=== PATIENT | female | born 1985 | race Hispanic/Latino ===

== ENCOUNTER 2021-09-18 18:40 | Emergency (ER) | payer OTHER ==
[2021-09-18 19:27] LABS: Urine Blood Trace-lysed (Negative); Urine Glucose Negative (Negative); Urine Protein Trace (Negative); Urine Specific Gravity >=1.030 (1.005-1.030)
[2021-09-18 19:33] LABS: Absolute Lymphocytes (CBC) 2.9 K/uL (0.7-4.9); Basophils % 0.7 % (0-1.3); Hematocrit 35.6 % (36.0-45.0); Lymphocytes % 27.5 % (15.3-44.8); MPV 7.6 fL (7.6-11.3); RBC Red Blood Cell Count 3.94 M/uL (3.86-4.86)
[2021-09-18 19:52] LABS: Urine Bacteria <20 /HPF (<20); Urine RBC <5 /HPF (NONE SEEN)
--- NOTE | 2021-09-18 19:55 | RAD REPORT ---
EXAM DESCRIPTION: CTAbdomen Pelvis W Contrast - 09/18/2021 7:45 pm CLINICAL HISTORY: ABD PAIN COMPARISON: No comparisons TECHNIQUE: CT of the abdomen and pelvis was performed. All CT scans are performed using dose optimization technique as appropriate and may include automated exposure control or mA/KV adjustment according to patient size. FINDINGS: Lower chest: No acute abnormality. Liver: Hepatic steatosis Biliary: Cholecystectomy. Stomach: No significant focal abnormality. Duodenum: No significant focal abnormality. Pancreas: No significant abnormality. Spleen: No significant abnormality. Adrenal: No suspicious lesions. Kidney/ureter: No hydronephrosis. No renal calculi. Retroperitoneum: No retroperitoneal adenopathy. Vascular: No aneurysm. Bowel: No bowel obstruction. Normal appendix.. Peritoneum: Small fat containing umbilical hernia. Bladder: Grossly unremarkable. Reproductive: Nabothian cysts noted. Bones: No acute fracture. Other: n/a IMPRESSION: No acute intra-abdominal or pelvic finding. Normal appendix. No urinary tract calculi.
[2021-09-18 20:01] LABS: ALT/SGPT 37 U/L (12-78); AST/SGOT 22 U/L (15-37); Albumin 3.6 g/dL (3.4-5.0); Alkaline Phosphatase 129 U/L (45-117); BUN Blood Urea Nitrogen 15 mg/dL (7-18); Bicarbonate 26 mmol/L (21-32); Bilirubin Direct < 0.1 mg/dL (0-0.2); Bilirubin Total 0.2 mg/dL (0.2-1.0); Glucose Level 104 mg/dL (74-106); Lipase 123 U/L (73-393); Potassium 3.9 mmol/L (3.5-5.1); Protein, Total 7.5 g/dL (6.4-8.2); Sodium Level 142 mmol/L (136-145)
--- NOTE | 2021-09-18 20:24 | EDPHYS ---
Physician Documentation [facility] Name: Leticia Chang Age: 35 yrs Sex: Female : 1985 Arrival Date: 09/18/2021 Time: 18:47 Bed 23 Private MD: ED Physician Cristobal Chandler HPI: 09/18 20:20 This 35 yrs old Female presents to ER via Ambulatory with complaints of rn Abdominal Cramping, Low Back Pain. 20:20 The patient presents with abdominal pain in the lower abdomen. Onset: The rn symptoms/episode began/occurred 4 day(s) ago. The symptoms do not radiate. Associated signs and symptoms: Pertinent negatives: anorexia, blood in stools, chest pain, constipation, diarrhea, dysuria, fever, hematuria, shortness of breath, vaginal discharge, vomiting, vomiting blood. The symptoms are described as crampy. Modifying factors: The symptoms are alleviated by nothing, the symptoms are aggravated by nothing. Severity of pain: At its worst the pain was mild in the emergency department the pain is unchanged. The patient has experienced similar episodes in the past. The patient has not recently seen a physician. Patient reports 4 days of lower abdominal pain and discomfort. Describes it as cramping. Also has low back pain. No dysuria or urinary symptoms. No vaginal discharge. Reports is 3 weeks late on her period and is normally pretty regular. Has a history of PCOS. Took multiple negative tests at home. Came in for a blood test and evaluation.. 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 - Social history:: Smoking status: Patient denies any tobacco usage or history of. Patient/guardian denies using alcohol, street drugs. - Family history:: not pertinent. - Hospitalizations: : No recent hospitalization is reported. ROS: 20:20 Constitutional: Negative for fever, chills, and weight loss, Eyes: Negative for injury, rn pain, redness, and discharge, Neck: Negative for injury, pain, and swelling, Cardiovascular: Negative for chest pain, palpitations, and edema, Respiratory: Negative for shortness of breath, cough, wheezing, and pleuritic chest pain, Abdomen/GI: Positive for lower abdominal pain. Negative for nausea/vomiting/diarrhea Back: Negative for injury and pain, : Negative for injury, bleeding, discharge, and swelling, MS/Extremity: Negative for injury and deformity, Skin: Negative for injury, rash, and discoloration, Neuro: Negative for headache, weakness, numbness, tingling, and seizure. 20:20 All other systems are negative. rn Exam: 20:20 Constitutional: This is a well developed, well nourished patient who is awake, alert, rn and in no acute distress. 20:20 Head/Face: Normocephalic, atraumatic. Eyes: Periorbital areas with no swelling, rn redness, or edema. Cardiovascular: Regular rate and rhythm . No pulse deficits. Respiratory: Speaking full sentences, unlabored no increased work of breathing, no retractions or nasal flaring. Abdomen/GI: Soft, non-tender, no peritoneal signs or rebound. No masses. Back: No spinal tenderness. No costovertebral tenderness. Full range of motion. Skin: Warm, dry with normal turgor. Normal color with no rashes, no lesions, and no evidence of cellulitis. MS/ Extremity: Pulses equal, no cyanosis. Neurovascular intact. Full, normal range of motion. Equal circumference. Neuro: Awake and alert, GCS 15, oriented to person, place, time, and situation. Motor strength 5/5 in all extremities. Sensory grossly intact. Cerebellar exam normal. Normal gait. Vital Signs: 18:56 BP 137 / 96; Pulse 94; Resp 16; Temp 97.4(TE); Pulse Ox 100% ; Weight 88 kg; Height 5 ap3 ft. 3 in. (160.02 cm); Pain 7/10; 21:01 BP 149 / 104 LA Sitting (auto/reg); Pulse 81; Resp 16; Temp 98.3; Pulse Ox 100% on R/A; kc4 Pain 0/10; 18:56 Body Mass Index 34.37 (88.00 kg, 160.02 cm) ap3 MDM: 18:58 Patient medically screened. rn 20:20 Differential diagnosis: appendicitis, diverticulitis, Ectopic , gastritis, rn gastroesophageal reflux disease, non-specific abd pain, pancreatitis, Peptic Ulcer Disease, Pyelonephritis, Ureterolithiasis, urinary tract infection. Differential diagnosis: Ovarian cyst. Data reviewed: vital signs, nurses notes, lab test result(s). Counseling: I had a detailed discussion with the patient and/or guardian regarding: the historical points, exam findings, and any diagnostic results supporting the discharge/admit diagnosis, lab results, radiology results, the need for outpatient follow up, to return to the emergency department if symptoms worsen or persist or if there are any questions or concerns that arise at home. Response to treatment: the patient's symptoms have mildly improved after treatment, and as a result, I will discharge patient. Special discussion: Based on the patient's Hx, exam, and Dx evaluation, there is no indication for emergent surgery or inpatient Tx. It is understood by the patient/guardian that if the Sx's persist or worsen they need to return immediately for re-evaluation. I discussed with the patient/guardian in detail that at this point there is no indication for admission to the hospital. It is understood, however, that if the symptoms persist or worsen the patient needs to return immediately for re-evaluation. ED course: No acute findings and CT abdomen and pelvis. Negative urine. Negative urine as well as serum . No acute findings and blood work otherwise. Will DC home with return precautions and FREELANCE DIRECTOR follow-up.. 09/18 19:12 Order name: Basic Metabolic Panel; Complete Time: 20: 09/18 19:12 Order name: CBC with Diff; Complete Time: 20: 09/18 19:12 Order name: Hepatic Function; Complete Time: 20: rn 09/18 19:12 Order name: Lipase; Complete Time: 20: rn 09/18 19:12 Order name: Urine Microscopic Only; Complete Time: 20: 09/18 19:12 Order name: Test, Serum; Complete Time: 20: rn 09/18 19:12 Order name: IV Saline Lock; Complete Time: rn 09/18 19:12 Order name: Labs collected and sent; Complete Time: : rn 09/18 19:12 Order name: Urine Dipstick-Ancillary (obtain specimen); Complete Time: :27 rn 09/18 19:12 Order name: Urine Test (obtain specimen); Complete Time: 19:27 rn 09/18 19:12 Order name: CT Abd/Pelvis - IV Contrast Only; Complete Time: 20:03 rn 09/18 19:26 Order name: Urine Dipstick-Ancillary; Complete Time: 20:03 EDNH 09/18 19:28 Order name: Urine --Ancillary (enter results) mw2 Administered Medications: No medications were administered Disposition Summary: 09/18/21 20:23 Discharge Ordered Location: Home rn Problem: new rn Symptoms: have improved rn Condition: Stable rn Diagnosis - Lower abdominal pain, unspecified rn - Low back pain rn Followup: rn - With: Private Physician - When: As needed - Reason: Recheck today's complaints, Re-evaluation by your physician Discharge Instructions: - Discharge Summary Sheet rn - Abdominal Pain, Adult rn - Pain Without a Known Cause rn Forms: - Medication Reconciliation Form rn - Thank You Letter rn - Antibiotic campus recruiting intern - Prescription Opioid Use rn Signatures: Dispatcher [employer] Cristobal Joiner MD MD rn Prokisch, Amanda, RN RN ap3
--- NOTE | 2021-09-18 20:24 | ER ---
Nurse's Notes [facility] Name: Leticia Chang Age: 35 yrs Sex: Female : 1985 Arrival Date: 09/18/2021 Time: 18:47 Bed 23 Private MD: Diagnosis: Lower abdominal pain, unspecified;Low back pain Presentation: 09/18 18:52 Chief complaint: Patient states: she is currently 24 days late on her menstrual period. ap3 Patient reports having taken tests, which are negative. Patient states that she also has lower back pain and light pink spotting, but states it is not enough to transfer to her underwear. Coronavirus screen: At this time, the client does not indicate any symptoms associated with coronavirus-19. Ebola Screen: No symptoms or risks identified at this time. Initial Sepsis Screen: Does the patient meet any 2 criteria? No. Patient's initial sepsis screen is negative. Does the patient have a suspected source of infection? No. Patient's initial sepsis screen is negative. Risk Assessment: Do you want to hurt yourself or someone else? Patient reports no desire to harm self or others. Onset of symptoms was September 14, 2021. 18:52 Method Of Arrival: Ambulatory ap3 18:52 Acuity: EMMANUELLE 4 ap3 Triage Assessment: 18:56 General: Appears in no apparent distress. Behavior is calm, cooperative. Pain: ap3 Complains of pain in low back area Pain currently is 7 out of 10 on a pain scale. Quality of pain is described as burning, Pain began gradually, 2-3 days ago. Is intermittent. Neuro: Level of Consciousness is awake, alert, obeys commands, Oriented to person, place, time, situation, Gait is steady, Speech is normal. Cardiovascular: Patient's skin is warm and dry. Respiratory: Airway is patent Respiratory effort is even, unlabored. GI: Abdomen is round Reports normal bowel movements. 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 - Social history:: Smoking status: Patient denies any tobacco usage or history of. Patient/guardian denies using alcohol, street drugs. - Family history:: not pertinent. - Hospitalizations: : No recent hospitalization is reported. Screenin:55 Abuse screen: Denies threats or abuse. Nutritional screening: No deficits noted. ap3 Tuberculosis screening: No symptoms or risk factors identified. 20:00 Fall Risk None identified. No fall in past 12 months (0 pts). No secondary diagnosis (0 kc4 pts). IV access (20 points). Ambulatory Aid- None/Bed Rest/Nurse Assist (0 pts). Gait- Normal/Bed Rest/Wheelchair (0 pts) Mental Status- Oriented to own ability (0 pts). Total Celestin Fall Scale indicates No Risk (0-24 pts). Assessment: 21:02 GI: Bowel sounds present X 4 quads. Abd is soft and non tender X 4 quads. kc4 Vital Signs: 18:56 BP 137 / 96; Pulse 94; Resp 16; Temp 97.4(TE); Pulse Ox 100% ; Weight 88 kg; Height 5 ap3 ft. 3 in. (160.02 cm); Pain 7/10; 21:01 BP 149 / 104 LA Sitting (auto/reg); Pulse 81; Resp 16; Temp 98.3; Pulse Ox 100% on R/A; kc4 Pain 0/10; 18:56 Body Mass Index 34.37 (88.00 kg, 160.02 cm) ap3 ED Course: 18:47 Patient arrived in ED. am2 18:54 Triage completed. ap3 18:55 Arm band placed on right wrist. ap3 18:58 Cristobal Chandler MD is Attending Physician. rn 19:27 Basic Metabolic Panel Sent. sj1 19:27 CBC with Diff Sent. sj1 19:27 Hepatic Function Sent. sj1 19:27 Lipase Sent. sj1 19:28 Urine Microscopic Only Sent. sj1 19:28 Test, Serum Sent. sj1 19:45 CT Abd/Pelvis - IV Contrast Only In Process Unspecified. EDMS 20:00 Patient has correct armband on for positive identification. Placed in gown. Bed in low kc4 position. Call light in reach. Side rails up X 1. 21:02 No provider procedures requiring assistance completed. IV discontinued, intact, kc4 bleeding controlled, No redness/swelling at site. Pressure dressing applied. Administered Medications: No medications were administered Outcome: 20:23 Discharge ordered by . rn 21:03 Discharged to home ambulatory. kc4 21:03 Condition: stable 21:03 Discharge instructions given to patient, Instructed on discharge instructions, follow up and referral plans. medication usage, Demonstrated understanding of instructions, follow-up care. 21:04 Patient left the ED. kc4 Signatures: Dispatcher [employer] EDMS Cristobal Chandler MD MD rn Moreno, Amanda am2 Rosanna Noble, RN RN ap3 Piper Manuel kc4 Kaylee Baltazar, RN RN sj1
[2021-09-18 21:16] VITALS: O2SAT 100
[2021-09-18 21:18] VITALS: BP 149/104; TEMP 98.3
[2021-09-18 21:30] LABS: Urine Specific Gravity/Preg >1.030 (1.005-1.030)
== END 2021-09-18 21:04 | disposition home or self-care (01) ==
LOC: ER 18:40
DX: R10.30 Lower abdominal pain, unspecified (principal); M54.50 Low back pain, unspecified; E28.2 Polycystic ovarian syndrome; K76.0 Fatty (change of) liver, not elsewhere classified
CPT/HCPCS: 85025; 80048; 36415; 84703; 81025; 80076; 83690; 74177; Q9967; 81003; 81015; 82565

== ENCOUNTER 2021-11-28 12:19 | Emergency (ER) | payer OTHER ==
--- OUTSIDE RECORDS SUMMARY | 2021-11-28 12:23 | XMS REPORT | Continuity of Care Document ---
:1985 Author Organization [facility] t Address [address] [place] [address] Care Team Providers Name Role Phone LALI Primary Care Physician Unavailable RAKAN Attending Clinician Unavailable Hieu MERCER Attending Clinician Unavailable Trina CHEUNG Attending Clinician Unavailable Tiago NESS Attending Clinician Unavailable LALI Attending Clinician Unavailable Branden ROBLES Attending Clinician Unavailable MARIA ELENA Attending Clinician Unavailable Tatiana CALABRESE Attending Clinician Unavailable PAULO Attending Clinician Unavailable KEM Attending Clinician Unavailable LAURA Attending Clinician Unavailable MOOKIE Attending Clinician Unavailable Toya CAIN Attending Clinician Unavailable PAULO Attending Clinician Unavailable MARIA ELENA Attending Clinician Unavailable Tatiana CALABRESE Attending Clinician Unavailable Isabella LINDA Attending Clinician Unavailable Danya DALLAS Attending Clinician Unavailable Edie JOHNSON Attending Clinician Unavailable Clarence GIBSON Attending Clinician Unavailable Danya SOMMER Attending Clinician Unavailable Payers Payer Name Policy Type Policy Number Effective Date Expiration Date S ource Problems This patient has no known problems. Allergies, Adverse Reactions, Alerts This patient has no known allergies or adverse reactions. Medications This patient has no known medications. Procedures This patient has no known procedures. Encounters Start End Encounter Admission Attending Care Care Encounter Source Date/Time Date/Time Type Type Clinicians Facility Department ID 2021-11-15 2021-11-15 Outpatient RAKAN [facility] [id number] [place] 00:00:00 00:00:00 [facility] 2021-10-21 2021-10-21 Outpatient DIOMEDES MERCER [facility] [id number] [place] 06:24:25 15:28:35 Health 2021-10-17 2021-10-17 Outpatient DIOMEDES MERCER [facility] [id number] [place] 14:39:44 15:56:04 Health 2021-10-17 2021-10-17 [facility] [id number] [place] [facility] 2021-09-24 Outpatient NESS, YASMEEN [facility] [id number] [place] 00:00:00 00:00:00 [facility] 2021-07-22 2021-07-22 Outpatient ZARE-CARMELINAJE [facility] [id number] [place] 07:39:03 14:25:01 RDI, [facility] 2021-07-18 2021-07-18 Outpatient DURET-UZODI [facility] [id number] [place] 00:00:00 00:00:00 NMAHINA [facility] 2021-07-16 2021-07-16 Outpatient NESS, YASMEEN [facility] [id number] [place] 07:30:00 15:04:20 [facility] 2021-05-31 2021-05-31 Outpatient MARIA ELENA, [facility] [id number] [place] 07:46:57 23:59:00 [facility] 2021-05-31 2021-05-31 [facility] [id number] [place] 07:28:21 07:28:21 [facility]YS [facility] 2021-05-28 2021-05-28 Outpatient ZARE-CARMELINAJE [facility] [id number] [place] 14:35:56 23:59:00 RDI, [facility] 2021-04-30 2021-04-30 Outpatient NESS, YASMEEN [facility] [id number] [place] 07:41:22 14:23:34 [facility] 2021-04-26 2021-04-26 Outpatient ELSHATANOUF [facility] [id number] [place] 05:54:28 06:33:48 Y, LEIGHTON [facility] 2021-04-26 2021-04-26 Outpatient [facility] [id number] [place] 00:00:00 00:00:00 [facility] 2021-04-25 2021-04-25 [facility] [id number] [place] 07:29:41 13:58:56 [facility] 2021-04-24 2021-04-24 [facility] [id number] [place] 07:32:58 12:19:27 [facility] 2021-04-12 2021-04-12 Outpatient CANIO, [facility] [id number] [place] 07:40:19 14:32:28 RANDA [facility] 2021-04-04 2021-04-04 Outpatient [facility] [id number] [place] 08:16:32 08:53:03 [facility] 2021-04-01 2021-04-01 [facility] [id number] [place] 07:45:48 16:56:20 INDUMATHI [facility] 2021-03-29 2021-03-29 [facility] [id number] [place] 15:35:40 15:54:29 [facility] 2021-03-29 2021-03-29 [id number] [place] 13:34:56 15:33:52 Y, SOLAFA [facility] 2021-03-29 2021-03-29 [facility] [id number] [place] 07:28:47 07:28:47 INDUMATHI [facility] 2021-03-29 2021-03-29 [facility] [id number] [place] 00:00:00 00:00:00 [facility] 2021-03-28 2021-03-28 [facility] [id number] [place] 08:07:05 08:18:58 [facility] 2021-03-25 2021-03-25 Outpatient [facility] [id number] [place] 00:00:00 00:00:00 [facility] 2021-03-21 2021-03-21 [facility] [id number] [place] 07:33:12 10:44:07 [facility] 2021-03-15 2021-03-15 [facility] [id number] [place] 07:35:48 14:16:48 [facility] 2021-03-08 2021-03-08 Outpatient [facility] [id number] [place] 11:31:59 11:36:37 [facility] 2021-03-08 2021-03-08 [facility] [id number] [place] 00:00:00 00:00:00 [facility] 2021-03-07 2021-03-07 [facility] [id number] [place] 07:39:46 10:14:46 [facility] 2021-03-06 2021-03-06 Outpatient BHARATI, [facility] [id number] [place] 07:50:28 16:34:50 STORMY Cortes 2021-03-06 2021-03-06 Outpatient BROWNLEE, [facility] [id number] [place] 00:00:00 00:00:00 [facility] 2021-01-21 2021-01-21 Outpatient BHARATI, [facility] [id number] [place] 11:18:19 16:16:56 STORMY Bennettt 2020-09-06 2020-09-06 Outpatient MADDI, [facility] [id number] [place] 00:00:00 00:00:00 [facility] 2020-08-17 2020-08-17 Outpatient BHARATI, [facility] [id number] [place] 07:19:09 09:15:35 STORMY Bennettt 2020-08-09 2020-08-09 Outpatient ARIES DALLAS [facility] [id number] [place] 14:30:06 14:38:44 [facility] 2020-08-09 2020-08-09 [facility] [id number] [place] 12:58:30 14:15:[address] [facility] 2020-08-09 2020-08-09 Outpatient GIBSONGETACHEW [facility] [id number] [place] 00:00:00 00:00:00 [facility] 2020-07-26 2020-07-26 [facility] [id number] [place] 00:00:00 00:00:00 DIANE Cortes 2020-07-16 2020-07-16 Outpatient BHARATI, [facility] [id number] [place] 07:39:56 14:51:19 STORMY Sabrinat 2020-07-09 2020-07-09 Outpatient LAURA, [facility] [id number] [place] 06:58:39 10:14:21 RANDA [facility] 2020-07-09 2020-07-09 Outpatient [facility] [id number] [place] 00:00:00 00:00:00 Health 2020-05-04 2020-05-04 Outpatient [facility] [id number] [place] 06:58:24 06:58:24 Health 2020-04-17 2020-04-17 Outpatient [facility] [id number] [place] 06:53:28 06:53:28 Health 2020-01-30 2020-01-30 Outpatient [facility] [id number] [place] 00:00:00 00:00:00 [facility] 2020-01-23 2020-01-23 Outpatient [facility] [id number] [place] 10:53:44 10:53:44 Health 2020-01-23 2020-01-23 Outpatient [facility] [id number] [place] 10:09:04 10:09:04 Health 2020-01-23 2020-01-23 Outpatient [facility] [id number] [place] 00:00:00 00:00:00 [facility] 2019-11-10 2019-11-10 Outpatient [facility] [id number] [place] 00:00:00 00:00:00 [facility] 2019-10-26 2019-10-26 Outpatient [facility] [id number] [place] 00:00:00 00:00:00 [facility] 2019-10-26 2019-10-26 Outpatient [facility] [id number] [place] 00:00:00 00:00:00 [facility] 2019-10-24 2019-10-24 Outpatient [facility] [id number] [place] 00:00:00 00:00:00 [facility] 2019-10-18 2019-10-18 Outpatient [facility] [id number] [place] 00:00:00 00:00:00 [facility] 2019-10-14 2019-10-14 Outpatient [facility] [id number] [place] 11:00:26 11:00:26 [facility] 2019-10-14 2019-10-14 Outpatient [facility] [id number] [place] 10:34:31 10:34:31 Health 2019-10-14 2019-10-14 Outpatient [facility] [id number] [place] 10:30:02 10:30:02 Health 2019-10-14 2019-10-14 Outpatient [facility] [id number] [place] 09:32:46 09:32:46 [facility] 2019-10-14 2019-10-14 Outpatient [facility] [id number] [place] 00:00:00 00:00:00 [facility] 2019-10-05 2019-10-05 Outpatient [facility] [id number] [place] 11:40:59 11:40:59 Health 2019-10-05 2019-10-05 Outpatient [facility] [id number] [place] 11:03:01 11:03:01 Health 2019-10-05 2019-10-05 Outpatient [facility] [id number] [place] 00:00:00 00:00:00 [facility] 2019-09-05 2019-09-05 Outpatient [facility] [id number] [place] 00:00:00 00:00:00 [facility] 2019-08-05 2019-08-05 Outpatient [facility] [id number] [place] 00:00:00 00:00:00 [facility] 2019-07-11 2019-07-11 Outpatient [facility] [id number] [place] 06:58:00 06:58:00 [facility] 2019-07-11 2019-07-11 Outpatient [facility] [id number] [place] 00:00:00 00:00:00 [facility] 2019-07-08 2019-07-08 Outpatient [facility] [id number] [place] 10:17:53 10:17:53 [facility] 2019-07-08 2019-07-08 Outpatient [facility] [id number] [place] 00:00:00 00:00:00 [facility] 2019-06-27 2019-06-27 Outpatient [facility] [id number] [place] 00:00:00 00:00:00 [facility] 2019-06-22 2019-06-22 Outpatient [facility] [id number] [place] 10:59:41 10:59:41 [facility] 2019-05-31 2019-05-31 Outpatient [facility] [id number] [place] 09:18:20 09:18:20 [facility] 2019-05-31 2019-05-31 Outpatient [facility] [id number] [place] 08:39:42 08:39:42 [facility] 2019-05-31 2019-05-31 Outpatient [facility] [id number] [place] 00:00:00 00:00:00 [facility] 2019-04-08 2019-04-08 Outpatient [facility] [id number] [place] 00:00:00 00:00:00 [facility] 2019-03-24 2019-03-24 Outpatient [facility] [id number] [place] 11:31:48 11:31:48 [facility] 2019-03-24 2019-03-24 Outpatient [facility] [id number] [place] 11:06:08 11:06:08 [facility] 2019-03-24 2019-03-24 Outpatient [facility] [id number] [place] 10:02:56 10:02:56 [facility] 2019-03-16 2019-03-16 Outpatient [facility] [id number] [place] 14:05:02 14:05:02 [facility] 2019-02-08 2019-02-08 Outpatient [facility] [id number] [place] 10:17:39 10:17:39 [facility] 2019-01-31 2019-01-31 Outpatient [facility] [id number] [place] 00:00:00 00:00:00 [facility] 2019-01-24 2019-01-24 Outpatient [facility] [id number] [place] 00:00:00 00:00:00 Health 2019-01-17 2019-01-17 Outpatient [facility] [id number] [place] 00:00:00 00:00:00 Health 2019-01-07 2019-01-07 Outpatient [facility] [id number] [place] 12:57:22 12:57:22 Health 2018-12-30 2018-12-30 Outpatient [facility] [id number] [place] 16:08:59 16:08:59 Health 2018-12-30 2018-12-30 Outpatient [facility] [id number] [place] 15:20:05 15:20:05 Health 2018-12-27 2018-12-27 Outpatient [facility] [id number] [place] 09:12:00 09:12:00 Health 2018-12-27 2018-12-27 Outpatient [facility] [id number] [place] 09:11:54 09:11:54 Health 2018-12-16 2018-12-16 Outpatient [facility] [id number] [place] 08:40:22 08:40:22 Health 2018-12-15 2018-12-15 Outpatient [facility] [id number] [place] 09:51:13 09:51:13 Health Results This patient has no known results.
== END 2021-11-28 14:29 | disposition left against medical advice (07) ==
LOC: ER 12:19
DX: Z02.89 Encounter for other administrative examinations (principal)

== ENCOUNTER 2022-02-26 07:44 | Emergency (ER) | payer OTHER ==
--- OUTSIDE RECORDS SUMMARY | 2022-02-26 07:48 | XMS REPORT | Continuity of Care Document ---
:1985 Author Organization [facility] t Address [address] [place] [address] Care Team Providers Name Role Phone PCP, DOES NOT HAVE A Primary Care Physician Unavailable Carlitos GARZON, T Attending Clinician Unavailable Trina WARNER Attending Clinician Unavailable Trina Warner APN Attending Clinician RAKAN Attending Clinician Unavailable Hieu MERCER Attending [...] Clinician Unavailable Danya SOMMER Attending Clinician Unavailable Trina WARNER Admitting Clinician Unavailable Payers Payer Name Policy Type Policy Number Effective Date Expiration Date S ource Problems This patient has no known problems. Allergies, Adverse Reactions, Alerts Allergy Allergy Status Severity Reaction(s) Onset Inactive Treating Comm ents Source Name Type Date Date Clinician NO KNOWN Drug Active Univers ALLERGIE Class it of [facility] Social History Social Habit Start Date Stop Date Quantity Comments Source Exposure to Yes [facility] SARS-CoV-2 (event[facility] Sex Assigned At [birth year] [facility] 00:00:00 00:00:00 Medical Branch Smoking Status Start Date Stop Date Source Unknown if ever smoked [facility] Medications Ordered Filled Start Stop Current Ordering Indication Dosage Frequency Signature Comments Components Source Medication Medication Date Date Medication? Clinician (SIG) Name Name cefdinir 2020-11- No 300mg 300 mg, Univ ers (OMNICEF) 11-29 Oral, ONCE ity of capsule 300 03:30: 02:39 NOW, 1 Dejuan as mg 00 :00 dose, On Medical [place]via Branch 11/28/21 at 2130, SOHAIL
Re ason for Anti-Infec tive: Empiric Therapy for Suspected Infection< br>Empiric Therapy Site: Urine
D uration of therapy: 72 hours iopamidol 2020-11- No [id number] 100mL 100 mL, Univers (ISOVUE 11-29 Intravenou ity o f 370-500 mL) 03:00: 01:40 s, ONCE, 1 [place] injection 00 :00 dose, On Medica l 100 mL Sylvia Branch 11/28/21 at 2100, Routine ondansetron 2020-11 Yes [id number] 4mg Take 1 Univers 4 mg 2-30 tablet by ity of disintegrat 00:00: mouth [place] ing tablet 00 every 8 Medica l (eight) Branch hours as needed for Nausea and Vomiting (N/V). ibuprofen 2020-11 Yes [id number] 600mg Take 1 U nivers 600 mg 2-30 tablet by ity of tablet 00:00: mouth [place] 00 every 6 Medical (six) Branch hours as needed for Pain (scale 1-3). ondansetron 2020-11 Yes [id number] 4mg Take 1 Univers 4 mg 2-30 tablet by ity of disintegrat 00:00: mouth [place] ing tablet 00 every 8 Medica l (eight) Branch hours as needed for Nausea and Vomiting (N/V). ibuprofen 2020-11 Yes [id number] 600mg Take 1 U nivers 600 mg 2-30 tablet by ity of tablet 00:00: mouth [place] 00 every 6 Medical (six) Branch hours as needed for Pain (scale 1-3). cefdinir 2020-11- Yes [id number] 300mg Take 1 U nivers 300 mg 2-30 -07 capsule by ity of capsule 00:00: 05:59 mouth [place] 00 :00 every 12 Medical (twelve) Branch hours for 7 days. cefdinir 2020-11- Yes [id number] 300mg Take 1 U nivers 300 mg 2-30 -07 capsule by ity of capsule 00:00: 05:59 mouth [place] 00 :00 every 12 Medical (twelve) Branch hours for 7 days. ibuprofen 2020-11- No [id number] 600mg Take 1 Univers 600 mg 2-30 -30 tablet by ity of tablet 00:00: 00:00 mouth [place] 00 :00 every 6 Medical (six) Branch hours as needed for Pain (scale 1-3). Vital Signs Vital Name Observation Time Observation Value Comments Source Systolic blood 2021-11-29 02:19:04 138 mm[Hg] [facility] [place] Diastolic blood 2021-11-29 02:19:04 101 mm[Hg] [facility] Heart rate 2021-11-29 02:19:04 76 /min [facility] Body temperature 2021-11-29 02:19:04 37.28 Dahiana [facility] Respiratory rate 2021-11-29 02:19:04 18 /min [facility] Oxygen saturation in 2021-11-29 02:19:04 100 /min [facility] Arterial blood by [facility] Pulse oximetry Branch Procedures Procedure Date / Time Performed Performing Clinician Sourc e CT ABDOMEN PELVIS W 2021-11-29 01:48:12 Chung Warner [facility] US OVARY TORSION 2021-11-29 00:57:04 Chung Warner [facility] CBC WITH DIFF 2021-11-28 22:50:00 Clair Ash [facility] URINALYSIS 2021-11-28 22:50:00 Clair Ash [facility] POCT TEST 2021-11-28 22:50:00 Clair Ash [facility] LIPASE 2021-11-28 22:49:00 Clair Ash [facility] COMP. METABOLIC PANEL 2021-11-28 22:49:00 [id number] Branch CONSENT/REFUSAL FOR 2021-11-28 22:26:59 Doctor Unassigned, No [facility] DI[facility]NOSIS AND Name Medical Branch TREATMENT NOTICE OF PRIVACY 2021-11-28 22:26:01 Doctor Unassigned, No [facility] Name Medical Branch Encounters Start End Encounter Admission Attending Care Care Encounter Source Date/Time Date/Time Type Type Clinicians Facility Department ID 2021-11-29 2021-11-29 Letter GETACHEW Urbina [id number] Univers 00:00:00 00:00:00 (Out) Yady NYE [id number] it [facility] [id number] [facility] [place] [facility] [id number] [facility] 019 Branch 2021-11-28 2021-11-28 Emergency [facility] [id number] Univers 16:51:00 20:42:00 CHUNG kaminski [facility] 2021-11-28 2021-11-28 [facility] [id number] Univers 16:51:00 20:42:00 [id number] [facility] [phone] [facility] 084 Branch 2021-11-15 2021-11-15 Outpatient RAKAN [facility] [id number] [place] 00:00:00 00:00:00 [facility] 2021-10-21 2021-10-21 Outpatient DIOMEDES MERCER [facility] [id number] [place] 06:24:25 15:28:35 [facility] 2021-10-17 2021-10-17 Outpatient DIOMEDES MERCER [facility] [id number] [place] 14:39:44 15:56:04 [facility] 2021-10-17 2021-10-17 Outpatient SKYE [facility] [id number] [place] 00:00:00 00:00:00 [facility] 2021-09-24 2021-09-24 Outpatient YASMEEN NESS [facility] [id number] [place] 00:00:00 00:00:00 [facility] 2021-07-22 2021-07-22 Outpatient ZARE-MEHRJE [facility] [id number] [place] 07:39:03 14:25:01 [facility] 2021-07-18 2021-07-18 Outpatient WILBURET-UZODI [facility] [id number] [place] 00:00:00 00:00:00 HINA DORSEY [facility] 2021-07-16 2021-07-16 Outpatient GROVER YASMEEN [facility] [id number] [place] 07:30:00 15:04:20 [facility] 2021-05-31 2021-05-31 Outpatient MARIA ELENA, [facility] [id number] [place] 07:46:57 23:59:00 [facility] 2021-05-31 2021-05-31 Outpatient BHARATI, [facility] [id number] [place] 07:28:21 07:28:21 STORMY [facility] 2021-05-28 2021-05-28 Outpatient ADA-MEHUL [facility] [id number] [place] 14:35:56 23:59:00 [facility] 2021-04-30 2021-04-30 Outpatient GROVER YASMEEN [facility] [id number] [place] 07:41:22 14:23:34 [facility] 2021-04-26 2021-04-26 Outpatient WOOTANOUToya [facility] [id number] [place] 05:54:28 06:33:48 Y, LEIGHTON [facility] 2021-04-26 2021-04-26 Outpatient [facility] [id number] [place] 00:00:00 00:00:00 [facility] 2021-04-25 2021-04-25 [facility] [id number] [place] 07:29:41 13:58:56 STORMY [facility] 2021-04-24 2021-04-24 Outpatient KEM, [facility] [id number] [place] 07:32:58 12:19:27 [facility] 2021-04-12 2021-04-12 Outpatient LAURA, [facility] [id number] [place] 07:40:19 14:32:28 RANDA [facility] 2021-04-04 2021-04-04 Outpatient [facility] [id number] [place] 08:16:32 08:53:03 [facility] 2021-04-01 2021-04-01 [facility] [id number] [place] 07:45:48 16:56:20 INDUMATHI [facility] 2021-03-29 2021-03-29 Outpatient ANT, [facility] [id number] [place] 15:35:40 15:54:29 [facility] 2021-03-29 2021-03-29 Outpatient NICKCODYToya [facility] [id number] [place] 13:34:56 15:33:52 Y, SOLAFA [facility] 2021-03-29 2021-03-29 Outpatient MOOKIE, [facility] [id number] [place] 07:28:47 07:28:47 INDUMATHI [facility] 2021-03-29 2021-03-29 [facility] [id number] [place] 00:00:00 00:00:00 [facility] 2021-03-28 2021-03-28 [facility] [id number] [place] 08:07:05 08:18:58 [facility] 2021-03-25 2021-03-25 Outpatient [facility] [id number] [place] 00:00:00 00:00:00 [facility] 2021-03-21 2021-03-21 [facility] [id number] [place] 07:33:12 10:44:07 [facility] 2021-03-15 2021-03-15 Outpatient MARIA ELENA, [facility] [id number] [place] 07:35:48 14:16:48 [facility] 2021-03-08 2021-03-08 Outpatient [facility] [id number] [place] 11:31:59 11:36:37 [facility] 2021-03-08 2021-03-08 [facility] [id number] [place] 00:00:00 00:00:00 [facility] 2021-03-07 2021-03-07 Outpatient MARIA ELENA, [facility] [id number] [place] 07:39:46 10:14:46 [facility] 2021-03-06 2021-03-06 Outpatient BHARATI, [facility] [id number] [place] 07:50:28 16:34:50 [facility]06 2021-03-06 [facility] [id number] [place] 00:00:00 00:00:00 [facility] 2021-01-21 2021-01-21 [facility] [id number] [place] 11:18:19 16:16:56 STORMY Cortes 2020-09-06 2020-09-06 Outpatient MADDI, [facility] [id number] [place] 00:00:00 00:00:00 [facility] 2020-08-17 2020-08-17 Outpatient BHARATI, [facility] [id number] [place] 07:19:09 09:15:35 STORMY Cortes 2020-08-09 2020-08-09 Outpatient CELENAARIES [facility] [id number] [place] 14:30:06 14:38:44 [facility] 2020-08-09 2020-08-09 [facility] [id number] [place] 12:58:30 14:15:34 [facility] 2020-08-09 2020-08-09 Outpatient ARTHUR GETACHEW [facility] [id number] [place] 00:00:00 00:00:00 [facility] 2020-07-26 2020-07-26 [facility] [id number] [place] 00:00:00 00:00:00 DIANE Cortes 2020-07-16 2020-07-16 Outpatient BHARATI, [facility] [id number] [place] 07:39:56 14:51:19 STORMY Cortes 2020-07-09 2020-07-09 Outpatient LAURA, [facility] [id number] [place] 06:58:39 10:14:21 RANDA Sabrina 2020-07-09 2020-07-09 Outpatient [facility] [id number] [place] 00:00:00 00:00:00 Health 2020-05-04 2020-05-04 Outpatient [facility] [id number] [place] 06:58:24 06:58:24 Health 2020-04-17 2020-04-17 Outpatient [facility] [id number] [place] 06:53:28 06:53:28 Health 2020-01-30 2020-01-30 Outpatient [facility] [id number] [place] 00:00:00 00:00:00 Health 2020-01-23 2020-01-23 Outpatient [facility] [id number] [place] 10:53:44 10:53:44 Health 2020-01-23 2020-01-23 Outpatient [facility] [id number] [place] 10:09:04 10:09:04 Health 2020-01-23 2020-01-23 Outpatient [facility] [id number] [place] 00:00:00 00:00:00 [facility] 2019-11-10 2019-11-10 Outpatient [facility] [id number] [place] 00:00:00 00:00:00 [facility] 2019-10-26 2019-10-26 Outpatient [facility] [id number] [place] 00:00:00 00:00:00 [facility] 2019-10-26 2019-10-26 Outpatient [facility] [id number] [place] 00:00:00 00:00:00 [facility] 2019-10-24 2019-10-24 Outpatient [facility] [id number] [place] 00:00:00 00:00:00 [facility] 2019-10-18 2019-10-18 Outpatient [facility] [id number] [place] 00:00:00 00:00:00 [facility] 2019-10-14 2019-10-14 Outpatient [facility] [id number] [place] 11:00:26 11:00:26 [facility] 2019-10-14 2019-10-14 Outpatient [facility] [id number] [place] 10:34:31 10:34:31 Health 2019-10-14 2019-10-14 Outpatient [facility] [id number] [place] 10:30:02 10:30:02 Health 2019-10-14 2019-10-14 Outpatient [facility] [id number] [place] 09:32:46 09:32:46 [facility] 2019-10-14 2019-10-14 Outpatient [facility] [id number] [place] 00:00:00 00:00:00 [facility] 2019-10-05 2019-10-05 Outpatient [facility] [id number] [place] 11:40:59 11:40:59 Health 2019-10-05 2019-10-05 Outpatient [facility] [id number] [place] 11:03:01 11:03:01 [facility] 2019-10-05 2019-10-05 Outpatient [facility] [id number] [place] 00:00:00 00:00:00 [facility] 2019-09-05 2019-09-05 Outpatient [facility] [id number] [place] 00:00:00 00:00:00 [facility] 2019-08-05 2019-08-05 Outpatient [facility] [id number] [place] 00:00:00 00:00:00 [facility] 2019-07-11 2019-07-11 Outpatient [facility] [id number] [place] 06:58:00 06:58:00 [facility] 2019-07-11 2019-07-11 Outpatient [facility] [id number] [place] 00:00:00 00:00:00 [facility] 2019-07-08 2019-07-08 Outpatient [facility] [id number] [place] 10:17:53 10:17:53 [facility] 2019-07-08 2019-07-08 Outpatient [facility] [id number] [place] 00:00:00 00:00:00 [facility] 2019-06-27 2019-06-27 Outpatient [facility] [id number] [place] 00:00:00 00:00:00 [facility] 2019-06-22 2019-06-22 Outpatient [facility] [id number] [place] 10:59:41 10:59:41 [facility] 2019-05-31 2019-05-31 Outpatient [facility] [id number] [place] 09:18:20 09:18:20 [facility] 2019-05-31 2019-05-31 Outpatient [facility] [id number] [place] 08:39:42 08:39:42 [facility] 2019-05-31 2019-05-31 Outpatient [facility] [id number] [place] 00:00:00 00:00:00 [facility] 2019-04-08 2019-04-08 Outpatient [facility] [id number] [place] 00:00:00 00:00:00 [facility] 2019-03-24 2019-03-24 Outpatient [facility] [id number] [place] 11:31:48 11:31:48 [facility] 2019-03-24 2019-03-24 Outpatient [facility] [id number] [place] 11:06:08 11:06:08 [facility] 2019-03-24 2019-03-24 Outpatient [facility] [id number] [place] 10:02:56 10:02:56 [facility] 2019-03-16 2019-03-16 Outpatient [facility] [id number] [place] 14:05:02 14:05:02 [facility] 2019-02-08 2019-02-08 Outpatient [facility] [id number] [place] 10:17:39 10:17:39 [facility] 2019-01-31 2019-01-31 Outpatient [facility] [id number] [place] 00:00:00 00:00:00 [facility] 2019-01-24 2019-01-24 Outpatient [facility] [id number] [place] 00:00:00 00:00:00 [facility] 2019-01-17 2019-01-17 Outpatient [facility] [id number] [place] 00:00:00 00:00:00 [facility] 2019-01-07 2019-01-07 Outpatient [facility] [id number] [place] 12:57:22 12:57:22 Health 2018-12-30 2018-12-30 Outpatient [facility] [id number] [place] 16:08:59 16:08:59 Health 2018-12-30 2018-12-30 Outpatient [facility] [id number] [place] 15:20:05 15:20:05 Health 2018-12-27 2018-12-27 Outpatient [facility] [id number] [place] 09:12:00 09:12:00 Health 2018-12-27 2018-12-27 Outpatient [facility] [id number] [place] 09:11:54 09:11:54 Health 2018-12-16 2018-12-16 Outpatient [facility] [id number] [place] 08:40:22 08:40:22 Health 2018-12-15 2018-12-15 Outpatient [facility] [id number] [place] 09:51:13 09:51:13 Health Results Test Description Test Time Test Comments Results Result Comments Source CBC with Differential 2021-11-28 23:20:39 Test Item Value Reference Range Interpretation Comme nts WBC (test code = 6690-2) See_Comment [A utomated message] The system which [employer] nerated this result transmit estefania reference range: 4.30 - 1 1.10 10*3/?L. The reference r isaac was not used to interpr et this result as normal/abnor mal. RBC (test code = 789-8) See_Comment [Au tomated message] The system which [employer] nerated this result transmit estefania reference range: 3.93 - 5 .25 10*6/?L. The reference r isaac was not used to interpr et this result as normal/abnor mal. HGB (test code = 718-7) 13.3 g/dL 11.6-15.0 HCT (test code = 4544-3) 40.3 % 35.7-45.2 MCV (test code = 787-2) 92.0 fL 80.6-95.5 MCH (test code = 785-6) 30.4 pg 25.9-32.8 MCHC (test code = 786-4) 33.0 g/dL 31.6-35.1 RDW-SD (test code = 63501-2) 41.0 fL 39.0-49.9 RDW-CV (test code = 788-0) 12.2 % 12.0-15.5 PLT (test code = 777-3) See_Comment H [Au tomated message] The system which ge nerated this result transmit estefania reference range: 166 - 35 8 10*3/?L. The reference range was not used to interpret th is result as normal/abnormal . MPV (test code = 73159-5) 9.8 fL 9.5-12.9 NRBC/100 WBC (test code = See_Comment [ Automated message] The [id number]) system which ge nerated this result transmit estefania reference range: 0.0 - 10 .0 /100 WBCs. The reference r isaac was not used to interpr et this result as normal/abnor mal. NRBC x10^3 (test code = <0.01 See_Comment [Au tomated message] The [id number]) system which ge nerated this result transmit estefania reference range: 10*3/?L. The reference range was not u sed to interpret this result as normal/abnormal . GRAN MAT (NEUT) % (test code 63.6 % = 770-8) IMM GRAN % (test code = 0.40 % 5236140414) LYMPH % (test code = 736-9) 26.4 % MONO % (test code = 5905-5) 7.6 % EOS % (test code = 713-8) 1.6 % BASO % (test code = 706-2) 0.4 % GRAN MAT x10^3(ANC) (test 6.23 10*3/uL 1.88-7.09 code = 7600425143) IMM GRAN x10^3 (test code = 0.04 10*3/uL 0.00-0.06 0924085450) LYMPH x10^3 (test code = 2.58 10*3/uL 1.32-3.29 731-0) MONO x10^3 (test code = 0.74 10*3/uL 0.33-0.92 742-7) EOS x10^3 (test code = 0.16 10*3/uL 0.03-0.39 711-2) BASO x10^3 (test code = 0.04 10*3/uL 0.01-0.07 704-7) Lab Interpretation (test Abnormal code = 81507-0) [facility] [id number] 23:19:17 Test Item Value Reference Range Interpretation Comments NA (test code = 136 mmol/L 135-145 0118453492) K (test code = 4.7 mmol/L 3.5-5.0 8738879506) CL (test code = 101 mmol/L 98-108 7180024324) CO2 TOTAL (test code = 26 mmol/L 23-31 1075847553) AGAP (test code = 2-16 5477728840) BUN (test code = 9 mg/dL 7-23 5447949379) GLUCOSE (test code = 86 mg/dL 70-110 9594838152) CREATININE (test code = 0.51 mg/dL 0.50-1.04 5659635034) TOTAL BILI (test code = 0.8 mg/dL 0.1-1.9 9012818695) CALCIUM (test code = 8.8 mg/dL 8.6-10.6 8763341117) T PROTEIN (test code = 8.4 g/dL 6.3-8.2 H 4999368281) ALBUMIN (test code = 4.5 g/dL 3.5-5.0 0304360234) ALK PHOS (test code = 115 U/L 34-122 5374323173) ALTv (test code = 22 U/L 5-35 1742-6) AST(SGOT) (test code = 33 U/L 13-40 7467019834) eGFR (test code = mL/min/1.73m2 9353141492) PARMINDER (test code = PARMINDER) Association of Glomerular Filtration Rate (GFR) and Staging of Kidney Disease* + --+ --+ ------+| GFR (mL/min/1.73 m2) ?| With Kidney Damage ?| ?Without Kidney Damage+ --------+ --------+ +| ?>90 ?| ?Stage one ?| ? Normal ?+ ---+ ---+ -------+| ?60-89 ?| ?Stage two ?| ? Decreased GFR ? + --+ --+ ------+| ?30-59 ?| ?Stage three ?| ? Stage three ? + --+ --+ ------+| ?15-29 ?| ?Stage four ? | ? Stage four ?+ ---+ ---+ -------+| ?<15 (or dialysis) ? ?| ?Stage five ? | ? Stage five ?+ ---+ ---+ -------+ *Each stage assumes the associated GFR level has been in effect for at least three months. ?Stages 1 to 5, with or without kidney disease, indicate chronic kidney disease. Notes: Determination of stages one and two (with eGFR >59mL/min/1.73 m2) requires estimation of kidney damage for at least three months as defined by structural or functional abnormalities of the kidney, manifested by either:Pathological abnormalities or Markers of kidney damage (including abnormalities in the composition of the blood or urine or abnormalities in imaging tests). Lab Interpretation Abnormal (test code = 60289-1) [facility] [id number] 23:19:02 Test Item Value Reference Range Interpretation Comments LIPASE (test code = 2202868032) 109 U/L 0-220 Lab Interpretation (test code = Normal 52354-9) [facility] [id number] 22:50:00 Test Item Value Reference Range Interpretation Comments POCT PREG (test code = 1605) negative On board controls acceptable with present C Line (test code = 3574) POCT PREG LOT # (test code = 3575) [id number] POCT PREG TEST DATE (test code = 3576) Lab Interpretation (test code = Normal 55747-1) [facility]"
[2022-02-26 08:03] LABS: Urine Blood Negative (Negative); Urine Glucose Negative (Negative); Urine Protein 1+ (Negative); Urine Specific Gravity >=1.030 (1.005-1.030)
[2022-02-26 08:12] LABS: Urine Specific Gravity/Preg >1.030 (1.005-1.030)
[2022-02-26] MEDS ORDERED: NA CHLORIDE 0.9% 1,000 ML ONE (08:13)
[2022-02-26] MEDS ORDERED: ONDANSETRON 4 MG/2 ML VIAL ONE (08:13)
[2022-02-26 08:14] LABS: Absolute Lymphocytes (CBC) 2.6 K/uL (0.7-4.9); Hematocrit 38.7 % (36.0-45.0); Lymphocytes % 35.5 % (15.3-44.8); MPV 7.6 fL (7.6-11.3); RBC Red Blood Cell Count 4.31 M/uL (3.86-4.86)
[2022-02-26 08:32] LABS: ALT/SGPT 32 U/L (12-78); Albumin 3.5 g/dL (3.4-5.0); Alkaline Phosphatase 127 U/L (45-117); BUN Blood Urea Nitrogen 8 mg/dL (7-18); Bicarbonate 25 mmol/L (21-32); Bilirubin Total 0.5 mg/dL (0.2-1.0); Glucose Level 114 mg/dL (74-106); Lipase 120 U/L (73-393); Protein, Total 8.2 g/dL (6.4-8.2); Sodium Level 138 mmol/L (136-145)
[2022-02-26 08:33] LABS: AST/SGOT 18 U/L (15-37); Potassium 3.7 mmol/L (3.5-5.1)
[2022-02-26] MEDS ORDERED: KETOROLAC 30 MG/ML INJ ONE (08:48)
--- NOTE | 2022-02-26 09:11 | RAD REPORT ---
EXAM DESCRIPTION: CTAbdomen Pelvis W Contrast - 02/26/2022 9:00 am CLINICAL HISTORY: ABD PAIN COMPARISON: Abdomen Pelvis W Contrast dated 09/18/2021 TECHNIQUE: CT of the abdomen and pelvis was performed. All CT scans are performed using dose optimization technique as appropriate and may include automated exposure control or mA/KV adjustment according to patient size. FINDINGS: Lower chest: No acute abnormality. Liver: Hepatic steatosis. Biliary: No biliary ductal dilatation. Cholecystectomy. Stomach: No significant focal abnormality. Duodenum: No significant focal abnormality. Pancreas: No significant abnormality. Spleen: No significant abnormality. Adrenal: No suspicious lesions. Kidney/ureter: No hydronephrosis. No renal calculi. Retroperitoneum: No retroperitoneal adenopathy. Vascular: No aneurysm. Bowel: No significant focal abnormality. Normal appendix. Peritoneum: No ascites or free air. Bladder: Grossly unremarkable. Reproductive: Nabothian cyst noted. Trace pelvic free fluid which is likely physiologic. Bones: No acute fracture. Other: n/a IMPRESSION: No acute intra-abdominal or pelvic finding.
--- NOTE | 2022-02-26 10:52 | RAD REPORT ---
EXAM DESCRIPTION: US - Transvaginal Study Probe - 02/26/2022 10:34 am CLINICAL HISTORY: ABD PAIN Pelvic pain. COMPARISON: Abdomen Pelvis W Contrast dated 02/26/2022 FINDINGS: The uterus is normal in size, shape and echotexture. The uterus measures 7.2 cm. The endometrial stripe measures 7 mm, within normal limits for age Both ovaries are normal in size, shape and echotexture. The right ovary measures 4.9 x 2.4 x 2.6 cm with volume of 15.8 cc. The left ovary measures 2.7 x 2.1 x 1.8 cm with volume of 5.4 cc. No ovarian or parovarian lesions. No adnexal masses. Normal Doppler blood flow was demonstrated to both ovaries. Complex fluid in the pelvis, likely blood products. IMPRESSION: 1. Bilateral ovarian blood flow. 2. Free fluid is likely physiologic.
--- NOTE | 2022-02-26 10:54 | ER ---
Nurse's Notes [facility] Name: Leticia Townsend Age: 36 yrs Sex: Female : 1985 Arrival Date: 02/26/2022 Time: 07:46 Bed Ultrasound Private MD: Diagnosis: Abdominal pain, Generalized Presentation: 02/26 07:54 Chief complaint: Patient states: Abd pain, swelling, nausea for 3 days. No fever. ll1 Pressure to rectal area when sitting. Coronavirus screen: Vaccine status: Patient reports receiving the 2nd dose of the covid vaccine. Client denies travel out of the [place] in the last 14 days. At this time, the client does not indicate any symptoms associated with coronavirus-19. Ebola Screen: Patient denies travel to an Ebola-affected area in the 21 days before illness onset. Initial Sepsis Screen: Does the patient meet any 2 criteria? No. Patient's initial sepsis screen is negative. Does the patient have a suspected source of infection? Yes: Acute abdominal pain. Risk Assessment: Do you want to hurt yourself or someone else? Patient reports no desire to harm self or others. Onset of symptoms was February 23, 2022. 07:54 Method Of Arrival: Ambulatory ll1 07:54 Acuity: EMMANUELLE 3 ll1 Triage Assessment: 08:19 General: Appears uncomfortable, Behavior is calm, cooperative. GI: Reports lower jg9 abdominal pain. 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 - Social history:: Smoking status: Patient denies any tobacco usage or history of. Screenin:18 Abuse screen: Denies threats or abuse. Denies injuries from another. Nutritional jg9 screening: No deficits noted. Tuberculosis screening: No symptoms or risk factors identified. Fall Risk None identified. Assessment: 08:18 Reassessment: No changes from previously documented assessment. Pain: Complains of pain jg9 in abdomen Pain currently is 10 out of 10 on a pain scale. GI: Abdomen is distended, Reports lower abdominal pain. 09:09 Reassessment: No changes from previously documented assessment. Patient states symptoms jg9 have not improved. Patient advised that we will give the medication a little more time to work, patient is ok with that. 09:48 Reassessment: No changes from previously documented assessment. Patient and/or family jg9 updated on plan of care and expected duration. Pain level reassessed. Patient states symptoms have not improved. Vital Signs: 07:54 BP 134 / 108; Pulse 110; Resp 17; Temp 99.0; Pulse Ox 100% ; Weight 87.54 kg; Height 5 ll1 ft. 3 in. (160.02 cm); Pain 10/10; 09:00 BP 132 / 86; Pulse 94; Resp 17; Pulse Ox 99% on R/A; Pain 10/10; jg9 10:00 BP 109 / 75; Pulse 76; Resp 17 S; Pulse Ox 100% on R/A; jg9 07:54 Body Mass Index 34.19 (87.54 kg, 160.02 cm) ll1 ED Course: 07:46 Patient arrived in ED. rg4 07:48 Ivis Persaud, RN is Primary Nurse. jg9 07:51 Mary De Luna FNP-C is PHCP. kb 07:51 Fredy Renee DO is Attending Physician. kb 07:53 Arm band placed on Patient placed in an exam room, on a stretcher. jg9 07:55 Triage completed. ll1 08:10 Inserted saline lock: 20 gauge in right antecubital area, using aseptic technique. jg9 Blood collected. 08:17 COVID swab sent to lab. jg9 09:02 CT Abd/Pelvis - IV Contrast Only In Process Unspecified. EDMS 09:09 Patient moved back from CT. jg9 09:09 uncomfortable. jg9 09:10 Patient has correct armband on for positive identification. Bed in low position. Call jg9 light in reach. Side rails up X 1. 09:48 Patient requests pain medication. Patient denied any improvement in pain-provider aware.jg9 10:36 US Transvaginal Study (Probe) In Process Unspecified. EDMS 11:12 No provider procedures requiring assistance completed. jg9 11:12 IV discontinued. jg9 Administered Medications: 08:17 Drug: NS 0.9% 1000 ml Route: IV; Rate: 1 bolus; Site: right antecubital; jg9 08:48 Follow up: IV Status: Completed infusion; IV Intake: 1000ml jg9 08:17 Drug: Zofran (Ondansetron) 4 mg Route: IVP; Site: right antecubital; jg9 09:00 Follow up: Response: No adverse reaction; Nausea is decreased jg9 08:48 Drug: Ketorolac 15 mg Route: IVP; Site: right antecubital; jg9 10:57 Follow up: Response: No adverse reaction; No change in condition; Pain is unchanged, jg9 physician notified Point of Care Testing: Urine : 08:19 hCG Reading: Negative; Control Reading: Positive; jg9 Intake: 08:48 IV: 1000ml; Total: 1000ml. jg9 Outcome: 10:53 Discharge ordered by . kb 11:12 Discharged to home ambulatory. jg9 11:12 Condition: unchanged 11:12 Discharge instructions given to patient, Instructed on discharge instructions, follow up and referral plans. Demonstrated understanding of instructions, follow-up care, medications, Prescriptions given X 2. 11:12 Patient left the ED. jg9 Signatures: Dispatcher [employer] EDMS Mary De Luna FNP-C FNP-Katerin Torres rg4 Adolfo Byrd, RYANN RN ll1 Ivis Persaud RN RN jg9
--- NOTE | 2022-02-26 10:54 | EDPHYS ---
Physician Documentation [facility] Name: Leticia Townsend Age: 36 yrs Sex: Female : 1985 Arrival Date: 02/26/2022 Time: 07:46 Bed Ultrasound Private MD: ED Physician Fredy Renee HPI: 02/26 10:51 This 36 yrs old Female presents to ER via Ambulatory with complaints of kb Nausea, Abdominal Swelling. 10:51 The patient presents with abdominal pain in the lower abdomen. Onset: The kb symptoms/episode began/occurred 3 day(s) ago. The symptoms do not radiate. Associated signs and symptoms: Pertinent positives: diarrhea, nausea. The symptoms are described as constant. Modifying factors: The symptoms are alleviated by nothing, the symptoms are aggravated by nothing. Severity of pain: At its worst the pain was moderate in the emergency department the pain is unchanged. The patient has not experienced similar symptoms in the past. The patient has not recently seen a physician. Pt reports abdominal pain that started in LLQ 3 days ago, then moved across lower abd. States she has had nausea, had diarrhea yesterday. States pain is worse when she sits. . 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 - Social history:: Smoking status: Patient denies any tobacco usage or history of. ROS: 10:50 Constitutional: Negative for fever, chills, and weight loss. kb 10:50 Abdomen/GI: Positive for abdominal pain, nausea, diarrhea, abdominal distension, Negative for vomiting. 10:50 All other systems are negative. Exam: 10:50 Constitutional: This is a well developed, well nourished patient who is awake, alert, kb and in no acute distress. Head/Face: Normocephalic, atraumatic. ENT: Moist Mucous membranes Cardiovascular: Regular rate and rhythm with a normal S1 and S2. No gallops, murmurs, or rubs. No pulse deficits. Respiratory: Respirations even and unlabored. No increased work of breathing. Talking in full sentences Skin: Warm, dry with normal turgor. Normal color. MS/ Extremity: Pulses equal, no cyanosis. Neurovascular intact. Full, normal range of motion. Neuro: Awake and alert, GCS 15, oriented to person, place, time, and situation. Moves all extremities. Normal gait. Psych: Awake, alert, with orientation to person, place and time. Behavior, mood, and affect are within normal limits. 10:50 Abdomen/GI: Inspection: abdomen appears normal, Bowel sounds: normal, in all quadrants, Palpation: soft, in all quadrants, mild abdominal tenderness, in the right upper quadrant and left upper quadrant, moderate abdominal tenderness, in the right lower quadrant and left lower quadrant. Vital Signs: 07:54 BP 134 / 108; Pulse 110; Resp 17; Temp 99.0; Pulse Ox 100% ; Weight 87.54 kg; Height 5 ll1 ft. 3 in. (160.02 cm); Pain 10/10; 09:00 BP 132 / 86; Pulse 94; Resp 17; Pulse Ox 99% on R/A; Pain 10/10; jg9 10:00 BP 109 / 75; Pulse 76; Resp 17 S; Pulse Ox 100% on R/A; jg9 07:54 Body Mass Index 34.19 (87.54 kg, 160.02 cm) ll1 MDM: 07:51 Patient medically screened. kb 10:50 Data reviewed: vital signs, nurses notes. Data interpreted: Pulse oximetry: on room air kb is 99 %. Interpretation: normal. Counseling: I had a detailed discussion with the patient and/or guardian regarding: the historical points, exam findings, and any diagnostic results supporting the discharge/admit diagnosis, lab results, radiology results, the need for outpatient follow up, a family practitioner, to return to the emergency department if symptoms worsen or persist or if there are any questions or concerns that arise at home. 02/26 07:54 Order name: CBC with Diff; Complete Time: 08:25 kb 02/26 07:54 Order name: CMP; Complete Time: 08:37 kb 02/26 07:54 Order name: Lipase; Complete Time: 08:37 kb 02/26 08:03 Order name: Urine Dipstick-Ancillary; Complete Time: 08:16 EDMS 02/26 08:05 Order name: Urine --Ancillary (enter results); Complete Time: 08:25 bd 02/26 08:41 Order name: CT Abd/Pelvis - IV Contrast Only; Complete Time: 09:20 kb 02/26 07:54 Order name: IV Saline Lock; Complete Time: 08:17 kb 02/26 07:54 Order name: Labs collected and sent; Complete Time: 08:17 kb 02/26 07:54 Order name: Urine Dipstick-Ancillary (obtain specimen); Complete Time: 08:17 kb 02/26 07:54 Order name: Urine Test (obtain specimen); Complete Time: 08:17 kb 02/26 09:20 Order name: US Transvaginal Study (Probe); Complete Time: 10:53 kb Administered Medications: 08:17 Drug: NS 0.9% 1000 ml Route: IV; Rate: 1 bolus; Site: right antecubital; jg9 08:48 Follow up: IV Status: Completed infusion; IV Intake: 1000ml j9 08:17 Drug: Zofran (Ondansetron) 4 mg Route: IVP; Site: right antecubital; jg9 09:00 Follow up: Response: No adverse reaction; Nausea is decreased jg9 08:48 Drug: Ketorolac 15 mg Route: IVP; Site: right antecubital; jg9 10:57 Follow up: Response: No adverse reaction; No change in condition; Pain is unchanged, jg9 physician notified Point of Care Testing: Urine : 08:19 hCG Reading: Negative; Control Reading: Positive; jg9 Disposition: 14:52 Co-signature as Attending Physician, Fredy MORRIS was immediately available on-site ms3 in the Emergency Department for consultation in the care of the patient.. Disposition Summary: 02/26/22 10:53 Discharge Ordered Location: Home kb Condition: Stable kb Diagnosis - Abdominal pain, Generalized kb Followup: kb - With: Emergency Department - When: As needed - Reason: Worsening of condition Followup: kb - With: Private Physician - When: 2 - 3 days - Reason: Recheck today's complaints, Continuance of care, Re-evaluation by your physician Discharge Instructions: - Discharge Summary Sheet kb - Abdominal Pain, Adult, [id number] kb Forms: - Medication Reconciliation Form kb - Thank You Letter kb - Antibiotic Education kb - Prescription Opioid Use kb - Work release form jg9 Prescriptions: - Zofran 4 mg Oral Tablet - take 1 tablet by ORAL route every 6 hours As needed; 20 tablet; Refills: 0, kb Product Selection Permitted - Diclofenac Sodium 75 mg Oral tablet,delayed release (DR/EC) - take 1 tablet by ORAL route 2 times per day As needed; 30 tablet; Refills: 0, kb Product Selection Permitted Signatures: Dispatcher [employer] Mary Kimble, Adolfo Denton, RN RN ll1 Fredy Renee DO DO ms3 Ivis Persaud RN RN jg9
[2022-02-26 11:56] VITALS: TEMP 99
[2022-02-26 11:59] VITALS: BP 109/75; O2SAT 100
== END 2022-02-26 11:12 | disposition home or self-care (01) ==
LOC: ER 07:44
DX: R10.84 Generalized abdominal pain (principal); R19.7 Diarrhea, unspecified
CPT/HCPCS: 96361; 85025; 36415; 81025; 81003; 83690; 80053; 74177; 76830; 96375; 96374; 99284; Q9967; J7030; J2405

== ENCOUNTER 2022-05-31 18:45 | Emergency (ER) | payer OTHER ==
[2022-05-31 20:17] LABS: Urine Blood Negative (Negative); Urine Glucose Negative (Negative); Urine Protein Negative (Negative); Urine Specific Gravity >=1.030 (1.005-1.030); Urine pH 5.5 (5.0-7.0)
[2022-05-31 20:56] LABS: Absolute Lymphocytes (CBC) 2.6 K/uL (0.7-4.9); Lymphocytes % 30.6 % (15.3-44.8); MCV 88.5 fL (80-100); MPV 7.8 fL (7.6-11.3); RBC Red Blood Cell Count 4.18 M/uL (3.86-4.86)
[2022-05-31 21:15] LABS: Albumin 3.4 g/dL (3.4-5.0); Bilirubin Total 0.2 mg/dL (0.2-1.0); Potassium 4.4 mmol/L (3.5-5.1); Protein, Total 7.9 g/dL (6.4-8.2)
--- NOTE | 2022-05-31 21:43 | RAD REPORT ---
EXAM DESCRIPTION: CTAbdomen Pelvis W Contrast - 05/31/2022 9:34 pm CLINICAL HISTORY: abdominal pain COMPARISON: Abdomen Pelvis W Contrast dated 02/26/2022; Abdomen Pelvis W Contrast dated TECHNIQUE: CT of the abdomen and pelvis was performed. All CT scans are performed using dose optimization technique as appropriate and may include automated exposure control or mA/KV adjustment according to patient size. FINDINGS: Lower chest: No acute abnormality. Liver: Hepatic steatosis Biliary: Cholecystectomy Stomach: No significant focal abnormality. Duodenum: No significant focal abnormality. Pancreas: No significant abnormality. Spleen: No significant abnormality. Adrenal: No suspicious lesions. Kidney/ureter: No hydronephrosis. No renal calculi. Retroperitoneum: No retroperitoneal adenopathy. Vascular: No aneurysm. Bowel: No significant focal abnormality. Normal appendix Peritoneum: No ascites or free air. Small fat containing umbilical hernia. No complicating features. Bladder: Grossly unremarkable. Reproductive: No adnexal masses. Nabothian cyst. Bones: No acute fracture. Other: n/a IMPRESSION: No acute intra-abdominal or pelvic finding. Normal appendix.
--- NOTE | 2022-05-31 22:15 | ER ---
Nurse's Notes [facility] Name: Leticia Townsend Age: 36 yrs Sex: Female : 1985 Arrival Date: 05/31/2022 Time: 18:48 Bed 13 Private MD: Diagnosis: Abdominal pain, Generalized Presentation: 05/31 18:56 Chief complaint: Patient states: "I have a small umbilical hernia and on I had vg1 to carry a car battery and since then I have been having ABD and its making me nauseous". Coronavirus screen: Vaccine status: Patient reports receiving the 2nd dose of the covid vaccine. Client denies travel out of the [place] in the last 14 days. Ebola Screen: Patient denies exposure to infectious person. Patient denies travel to an Ebola-affected area in the 21 days before illness onset. Initial Sepsis Screen: Does the patient meet any 2 criteria? No. Patient's initial sepsis screen is negative. Does the patient have a suspected source of infection? No. Patient's initial sepsis screen is negative. Risk Assessment: Do you want to hurt yourself or someone else? Patient reports no desire to harm self or others. Onset of symptoms was May 29, 2022. 18:56 Method Of Arrival: Ambulatory [facility] 18:56 Acuity: EMMAUNELLE 3 vg1 Triage Assessment: 18:58 General: Appears comfortable, Behavior is calm, cooperative. Pain: Complains of pain in vg1 abdomen Pain currently is 7 out of 10 on a pain scale. GI: Reports nausea. 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 - Social history:: Smoking status: Patient denies any tobacco usage or history of. Screenin:47 Abuse screen: Denies threats or abuse. Nutritional screening: No deficits noted. ke1 Tuberculosis screening: No symptoms or risk factors identified. Fall Risk None identified. Assessment: 20:47 General: Appears in no apparent distress. Behavior is appropriate for age. GI: Bowel ke1 sounds present X 4 quads. Abd is soft Abdomen is tender to palpation in right lower quadrant and left lower quadrant. Vital Signs: 18:56 BP 128 / 92; Pulse 90; Resp 16; Temp 98.1; Pulse Ox 100% on R/A; Weight 85.73 kg; vg1 Height 5 ft. 3 in. (160.02 cm); Pain 7/10; 23:07 BP 123 / 90; Pulse 73; Resp 18; Pulse Ox 100% ; Pain 0/10; ke1 18:56 Body Mass Index 33.48 (85.73 kg, 160.02 cm) 1 ED Course: 18:48 Patient arrived in ED. mr 18:58 Triage completed. vg1 18:58 Arm band placed on. vg1 19:19 Patient notified of wait time. tw5 19:24 Christiano Westfall PA is PHCP. [facility] 19:24 Rashawn Granados MD is Attending Physician. [facility] 20:18 Patient has correct armband on for positive identification. Placed in gown. Bed in low 5 position. Call light in reach. Warm blanket given. Pulse ox on. NIBP on. 20:18 Urine collected: clean catch specimen, clear. [facility] 20:22 Natalie Michelle, RYANN is Primary Nurse. ke1 20:46 Inserted saline lock: 20 gauge in left antecubital area, using aseptic technique. ke1 21:35 CT Abd/Pelvis - IV Contrast Only In Process Unspecified. EDMS 23:08 No provider procedures requiring assistance completed. IV discontinued. ke1 Administered Medications: No medications were administered Medication: 23:08 VIS not applicable for this client. ke1 Outcome: 22:15 Discharge ordered by . jaleesa 23:08 Discharged to home ambulatory. ke1 23:08 Condition: good 23:08 Discharge instructions given to patient. 23:08 Patient left the ED. ke1 Signatures: Dispatcher [employer] EDMS Christiano Westfall PA PA [facility] RockJanki mr Boone Nallely [facility] Sneha Ellis RN RN 1 Audra Geronimo 5 Natalie Michelle, RYANN GARZON ke
--- NOTE | 2022-05-31 22:15 | EDPHYS ---
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 - Social history:: Smoking status: Patient denies any tobacco usage or history of. Vital Signs: 18:56 BP 128 / 92; Pulse 90; Resp 16; Temp 98.1; Pulse Ox 100% on R/A; Weight 85.73 kg; vg1 Height 5 ft. 3 in. (160.02 cm); Pain 7/10; 23:07 BP 123 / 90; Pulse 73; Resp 18; Pulse Ox 100% ; Pain 0/10; ke1 18:56 Body Mass Index 33.48 (85.73 kg, 160.02 cm) vg1 MDM: 20:05 Patient medically screened. [facility] 22:14 Data reviewed: vital signs, nurses notes. Counseling: I had a detailed discussion with [facility] the patient and/or guardian regarding: the historical points, exam findings, and any diagnostic results supporting the discharge/admit diagnosis, lab results, radiology results, the need for outpatient follow up, to return to the emergency department if symptoms worsen or persist or if there are any questions or concerns that arise at home. 05/31 20:17 Order name: Urine Dipstick-Ancillary; Complete Time: 20:20 [facility] 05/31 20:17 Order name: CBC with Diff; Complete Time: 21:18 [facility] 05/31 20:17 Order name: CMP; Complete Time: 21:18 [facility] 05/31 20:17 Order name: Lipase; Complete Time: 21:18 [facility] 05/31 20:18 Order name: CT Abd/Pelvis - IV Contrast Only; Complete Time: 21:46 [facility] 05/31 20:17 Order name: IV Saline Lock; Complete Time: 20:46 [facility] 05/31 20:17 Order name: Labs collected and sent; Complete Time: 20:46 [facility] 05/31 20:17 Order name: Urine Dipstick-Ancillary (obtain specimen); Complete Time: 20:18 [facility] 05/31 20:17 Order name: Urine Test (obtain specimen); Complete Time: 20:18 [facility] Administered Medications: No medications were administered Disposition Summary: 05/31/22 22:15 Discharge Ordered Location: Home [facility] Condition: Stable [facility] Diagnosis - Abdominal pain, Generalized jmm Followup: [facility] - With: Private Physician - When: 2 - 3 days - Reason: Recheck today's complaints, Continuance of care, Re-evaluation by your physician Discharge Instructions: - Discharge Summary Sheet [facility] - Abdominal Pain, Adult [facility] Forms: - Medication Reconciliation Form [facility] - Thank You Letter [facility] - Antibiotic Education [facility] - Prescription Opioid Use [facility] Prescriptions: - Diclofenac Sodium 75 mg Oral Tablet Sustained Release - take 1 tablet by ORAL route 2 times per day; 30 tablet; Refills: 0, Product [facility] Selection Permitted - orphenadrine citrate 100 mg Oral Tablet Sustained Release - take 1 tablet by ORAL route 2 times per day As needed; 20 tablet; Refills: 0, [facility] Product Selection Permitted Signatures: Dispatcher [employer] Rashawn Nava MD MD cha Mickail, Joel, PA PA jmm Garcia, Victoria, RN RN vg1
[2022-05-31 23:26] VITALS: TEMP 98.1; O2SAT 100
[2022-05-31 23:27] VITALS: BP 123/90
== END 2022-05-31 23:08 | disposition home or self-care (01) ==
LOC: ER 18:45
DX: R10.84 Generalized abdominal pain (principal)
CPT/HCPCS: 85025; 36415; 81003; 83690; 80053; 74177; 99284; Q9967